=== PATIENT | male | born 1940 | race Caucasian/White ===

== ENCOUNTER 2017-07-30 01:57 | Emergency (ER) | payer MEDICARE ==
[2017-07-30] MEDS ORDERED: PHENYLEPHRINE 0.25% NASAL SPRA 1 SPRAY/ML NASAL STA (03:21)
[2017-07-30] MEDS ORDERED: OXYMETAZOLINE 0.05% NASL SPRAY 1 SPRAY BOTTLE NASAL STA (03:25)
--- NOTE | 2017-07-30 03:58 | ED ---
ENT HPI - General Source: patient, family Mode of arrival: ambulatory Limitations: no limitations <Lisa Mccrary - Last Filed: 07/30/17 05:48> <Jose Angel Orozco - Last Filed: 08/03/17 09:38> - General Chief complaint: ENT Stated complaint: Epistaxis Time Seen by Provider: 07/30/17 03:10 - History of Present Illness Initial comments: 77-year-old male patient presents for evaluation this morning for epistaxis. Patient states he has had this in the past, has seen an ENT specialist for this , and has been told it is mostly due to when conditions are dry. He states that this episode started around 0100 this morning. He states that he was having difficulty getting the bleeding to stop. He states he was having a copious amount of blood from the right nostril. He states he does take xarelto for hx of afib so he was concerned and presented here for evaluation. He denies any nasal trauma, headache, dizziness, or weakness. He denies any recent upper respiratory infections. He has been able to get the bleeding to stop at this time. He denies any history of bleeding disorders. Patient denies any recent rash, fever, chills, shortness breath, chest pain, abdominal pain, nausea, vomiting, diarrhea, constipation, back pain, numbness, tingling, hematuria, dysuria, urinary urgency, urinary frequency, headache, visual changes , or any other complaints. He is currently traveling and staying in a hotel. (Lisa Mccrary) - Related Data Home Medications Medication Instructions Recorded Confirmed Omeprazole [PriLOSEC] 20 mg PO AC-BRKFST 07/30/17 07/30/17 Rivaroxaban [Xarelto] 15 mg PO DAILY 07/30/17 07/30/17 Silodosin [Rapaflo] 4 mg PO DAILY 07/30/17 07/30/17 Simvastatin [Zocor] 40 mg PO HS 07/30/17 07/30/17 Allergies Allergy/AdvReac Type Severity Reaction Status Date / Time amoxicillin [From Augmentin] AdvReac Diarrhea Verified 07/30/17 02:36 clavulanic acid AdvReac Diarrhea Verified 07/30/17 02:36 [From Augmentin] Review of Systems ROS Other: All systems not noted in ROS Statement are negative. <Lisa Mccrary - Last Filed: 07/30/17 05:48> ROS Other: All systems not noted in ROS Statement are negative. <Jose Angel Orozco - Last Filed: 08/03/17 09:38> ROS Statement: Those systems with pertinent positive or pertinent negative responses have been documented in the HPI. Past Medical History Past Medical History: Hyperlipidemia, Hypertension History of Any Multi-Drug Resistant Organisms: None Reported Past Surgical History: Unable to Obtain Past Psychological History: No Psychological Hx Reported Smoking Status: Former smoker Past Alcohol Use History: Occasional Past Drug Use History: None Reported <Lisa Mccrary - Last Filed: 07/30/17 05:48> General Exam Limitations: no limitations General appearance: alert, in no apparent distress, other (This is a well- developed, well-nourished 77-year-old male in no acute distress. Vital signs upon presentation her temperature 98.3F, pulse 100, respirations 20, blood pressure 136/76, pulse ox 98% on room air.) Eye exam: Present: normal appearance, PERRL, EOMI. Absent: scleral icterus, conjunctival injection, periorbital swelling ENT exam: Present: normal exam, normal oropharynx, mucous membranes moist, TM's normal bilaterally, other (Dried blood noted surrounding the right nare. Examination of the septum does reveal a scabbed area anteriorly.) Respiratory exam: Present: normal lung sounds bilaterally. Absent: respiratory distress, wheezes, rales, rhonchi, stridor Cardiovascular Exam: Present: regular rate, normal rhythm, normal heart sounds. Absent: systolic murmur, diastolic murmur, rubs, gallop, clicks GI/Abdominal exam: Present: soft, normal bowel sounds. Absent: distended, tenderness, guarding, rebound, rigid Neurological exam: Present: alert, oriented X3, CN II-XII intact Psychiatric exam: Present: normal affect, normal mood Skin exam: Present: warm, dry, intact, normal color. Absent: rash <Lisa Mccrary - Last Filed: 07/30/17 05:48> Medical Decision Making <Lisa Mccrary - Last Filed: 07/30/17 05:48> <Jose Angel Orozco - Last Filed: 08/03/17 09:38> - Medical Decision Making 69-year-old male patient presented for evaluation of bleeding from his right near. Patient has had several episodes of epistaxis in the past as he is taking Xarelto. Patient has seen an ENT specialist for this. Physical examination did show bleeding from the right near. Did attempt to have patient blow his nose, and still 2 sprays of Afrin, and applied pressure with nasal clamp. This did provide hemostasis. Did remove a large scab as well as a large blood clot from the nostril. We reattempted the Afrin instillation with pressure, again this was unsuccessful. Dr. Orozco my attending did perform an examination, he did use silver nitrate to cauterize a bleeding area in the anterior nasal septum. This did appear to achieve hemostasis. Patient did not have any recurrent bleeding. Patient is traveling at this time from [place], he is instructed to follow-up with his local ENT specialist as soon as he gets home. He is instructed to report to the nearest emergency department should he have any recurrent bleeding or any other concerns. He is instructed to return here or to the nearest emergency department for any new, worsening, or concerning symptoms. Patient and his verbalize understanding and agree with this plan. (Lisa Mccrary) I saw this patient in conjunction with the physician assistant associate professor. I performed independent history and physical exam. Agree with case management. (Jose Angel Orozco) Disposition Time of Disposition: 04:17 <Lisa Mccrary - Last Filed: 07/30/17 05:48> <JoseA ngel Orozco - Last Filed: 08/03/17 09:38> Clinical Impression: Epistaxis Disposition: HOME SELF-CARE Condition: Good Instructions: Nosebleed (ED) Additional Instructions: If bleeding recurs blow nose, administer one to 2 sprays of the nasal spray, apply nasal clamp for 20 minutes and recheck for bleeding. Repeat process of bleeding continues. If after 2 rounds of this process bleeding is still present , present to the nearest emergency department. Follow-up with your ENT specialist when he arrived home. Return here immediately or present to the nearest emergency department for any new, worsening, or concerning symptoms. Referrals: Nonstaff,Physician [Primary Care Provider] - 1-2 days
[2017-07-30 05:26] VITALS: BP 123/68; PULSE 83; RESP 16; TEMP 97.8
== END 2017-07-30 05:40 | disposition home or self-care (01) ==
LOC: EC 01:57
DX: R04.0 Epistaxis (principal); E78.5 Hyperlipidemia, unspecified; I10 Essential (primary) hypertension; Z87.891 Personal history of nicotine dependence; Z79.01 Long term (current) use of anticoagulants; Z79.899 Other long term (current) drug therapy; Z88.0 Allergy status to penicillin
CPT/HCPCS: 30901; 99283